=== PATIENT | female | born 1945 | race Caucasian/White ===

== ENCOUNTER 2017-12-27 12:48 | Emergency (ER) | payer MEDICARE, SELFPAY ==
[2017-12-27 13:00] VITALS: BP 159/83; PULSE 79; RESP 18; TEMP 37.6; O2SAT 99
--- NOTE | 2017-12-27 13:42 | ED_ITS ---
HPI - General Adult <ZAINA Capellan - Last Filed: 12/27/17 22:23> General Chief complaint: Recheck/Abnormal Lab/Rx Stated complaint: hoping to recieve pain meds for thigh pain Time Seen by Provider: 12/27/17 12:50 Source: patient Mode of arrival: ambulatory Limitations: no limitations History of Present Illness HPI narrative: 72-year-old female here for complaint of pain into her lumbar area radiating down into her buttocks and into her left thigh. She states that the pain started 1 week ago when she was in [place] walking on the beach and slipped in a sand dune. She reports that she was seen in the emergency room in [place] and had x-rays of the left hip and also an ultrasound of the left lower extremity for blood clot and was negative. She was prescribed cyclobenzaprine and tramadol for her symptoms. She reports that she has been using these and is almost out of tramadol and request some more tramadol she is scheduled to follow up with the primary care provider in the next few days for re-evaluation. She denies any loss of bladder or bowel control. She denies any direct trauma to the area. She is ambulatory into the emergency room. Onset (ago): day(s) Related Data Home Medications Medication Instructions Recorded Confirmed CALCIUM CARBONATE (CALCIUM 1,000 mg PO Q DAY #0 06/01/12 CARBONATE (CHEW)) LACTOBACILLUS ACIDOPHILUS 1 cap PO Q DAY #0 06/01/12 (#ACIDOPHILUS) LOPERAMIDE HCL (Loperamide) 2 mg PO HSP PRN #30 tab 03/02/13 Previous Rx's Medication Instructions Recorded nitrofurantoin monohyd/m-cryst 100 mg PO BID #14 cap 12/17/16 [Macrobid] prednisone 40 mg PO DAILY #8 tab 12/27/17 tramadol 50 mg PO Q6H PRN #6 tab 12/27/17 Allergies Allergy/AdvReac Type Severity Reaction Status Date / Time oxycodone [OXYCODONE] Allergy Unknown DIARRHEA & Unverified 09/10/17 12:04 VOMITING Review of Systems <ZAINA Capellan - Last Filed: 12/27/17 22:23> Constitutional Denies chills, Denies fever(s), Denies lethargy and Denies weakness Eyes Denies change in vision, Denies eye discharge, Denies irritation and Denies loss of vision ENT Ears, Nose, Mouth, and Throat: Denies change in voice, Denies neck pain and Denies sore throat Cardiovascular Denies chest pain, Denies irregular heart rhythm, Denies lightheadedness, Denies palpitations, Denies dyspnea, Denies dyspnea on exertion and Denies orthopnea Respiratory Denies cough, Denies dyspnea, Denies dyspnea on exertion and Denies wheezing Gastrointestinal Gastrointestinal: Denies abdominal pain, Denies change in bowel habits, Denies diarrhea, Denies nausea and Denies vomiting Genitourinary Denies hematuria, Denies flank pain, Denies urinary incontinence and Denies urinary urgency Musculoskeletal Denies neck pain Comments: Left lumbar pain that radiates into left buttocks and left posterior thigh Integumentary/Breasts Denies pruritus, Denies erythema, Denies rash and Denies wounds Neurologic Denies confusion, Denies loss of vision and Denies weakness Psychiatric Denies anxiety, Denies confusion, Denies depression, Denies homicidal ideation and Denies suicidal ideation Endocrine Denies palpitations Hematologic/Lymphatic Denies easy bruising Allergic/Immunologic Denies wheezing Exam <ZAINA Capellan - Last Filed: 12/27/17 22:23> Initial Vital Signs Initial Vital Signs: Vital Signs Temperature 99.7 F H 12/27/17 13:00 Pulse Rate 79 12/27/17 13:00 Respiratory Rate 18 12/27/17 13:00 Blood Pressure 159/83 H 12/27/17 13:00 Pulse Oximetry 99 12/27/17 13:00 Const General: cooperative and well developed Nutritional Appearance: well nourished Orientation: alert, awake, oriented x3 and not confused [facility] Mouth: oral mucosae normal and moist mucous membranes Eyes Conjunctivae: conjunctivae normal Sclera: sclerae normal Pupils: PERRL EOM: EOM intact bilaterally Resp Effort & Inspection: normal respiratory effort, able to speak in complete sentences, no respiratory distress and no use of accessory muscles Auscultation: clear to auscultation bilaterally, no rales, no rhonchi and no wheezes Cardio Rate: regular rate Rhythm: regular rhythm Heart Sounds: no click, no gallops, no murmurs and no rubs Pulses: normal peripheral pulses Back/Spine/Pelvis Other: Tenderness to the left paraspinals of the lumbar spine with tenderness radiating to the left buttocks and into the left posterior thigh distal sensation is intact. Full range of motion. Distal pulses are intact. Skin General: no rashes or lesions noted, No jaundice and No petechiae Neuro General: alert, oriented x3, gait normal and no focal motor deficits Speech: speech normal <Broderick Cota DO - Last Filed: 12/28/17 07:29> Initial Vital Signs Initial Vital Signs: Vital Signs Temperature 99.7 F H 12/27/17 13:00 Pulse Rate 79 12/27/17 13:00 Respiratory Rate 18 12/27/17 13:00 Blood Pressure 159/83 H 12/27/17 13:00 Pulse Oximetry 99 12/27/17 13:00 Medical Decision Making <ZAINA Capellan - Last Filed: 12/27/17 22:23> MDM Narrative Medical decision making narrative: Signs and symptoms presents as lumbar strain to the left paraspinals with sciatica to the left buttocks and thigh. Will have her continue using cyclobenzaprine to help with muscle spasm. Over-the- counter Tylenol as needed for discomfort. She is prescribed a hand full more of tramadol and instructed not to use in conjunction with the cyclobenzaprine. She is also given a short course of prednisone for anti-inflammatory effects. Follow up with primary care provider in the next few days as scheduled. Gentle range of motion to the painful areas to help keep muscles loose. For any worsening symptoms return to the emergency room. Discharge Plan Departure Patient Disposition: Home, Self-Care Clinical Impression: Lower back pain Discharge Date/Time: 12/27/17 13:57 Interventions: ED Discharge Assessment Last Done: 12/27/17 13:55 Instructions: DI for Back Pain With Sciatica Activity Restrictions/Additional Instructions: Signs and symptoms presents as lower back strain with sciatica. Use over-the- counter Tylenol as needed for any discomfort. Continue to use the cyclobenzaprine for muscle spasm as prescribed. Handful of tramadol is prescribed for pain and not covered by the Tylenol. Do not use the tramadol and conjunction with a cyclobenzaprine due to increased risk of drowsiness. Both medications can cause drowsiness do not drive while on these medications. Short course of prednisone is also prescribed for anti-inflammatory effects use as directed. Follow up with her primary care provider in the next few days as scheduled. For any worsening symptoms return to the emergency room. Gentle range of motion to painful areas to help keep muscles loose. Prescriptions: New prednisone 20 mg tablet 40 mg PO DAILY Qty: 8 RF: 0 tramadol 50 mg tablet 50 mg PO Q6H PRN (Reason: pain) Qty: 6 RF: 0 No Action CALCIUM CARBONATE (CALCIUM CARBONATE (CHEW)) 1,000 mg PO Q DAY Qty: 0 RF: 0 LACTOBACILLUS ACIDOPHILUS (#ACIDOPHILUS) 1 cap PO Q DAY Qty: 0 RF: 0 LOPERAMIDE HCL (Loperamide) 2 mg PO HSP PRNQty: 30 RF: 0 nitrofurantoin monohyd/m-cryst [Macrobid] 100 MG capsule 100 mg PO BID Qty: 14 RF: 0 Referrals: [facility] [Provider Group] Provider,Conversion [Non-Staff] - <Broderick Cota DO - Last Filed: 12/28/17 07:29> Cosign ED Attending Cossherryature Attestation: I was available for consultation during this patient's emergency department encounter
== END 2017-12-27 13:57 | disposition home or self-care (01) ==
PROVIDERS: Emergency Provider Nurse Practitioner Family
DX: M54.9 Dorsalgia, unspecified (principal)
CPT/HCPCS: 99282

== ENCOUNTER 2020-11-23 15:46 | Emergency (ER) | payer MEDICARE, SELFPAY ==
[2020-11-23 16:08] VITALS: BP 201/86; PULSE 69; RESP 14; TEMP 36.7; O2SAT 97; BMI 21.8
--- NOTE | 2020-11-23 16:49 | DI.US.S_ITS ---
PROCEDURE: US PERIPH VENOUS LOW EXTREM RT INDICATIONS: swelling and calf pain TECHNIQUE: Real-time imaging, as well as color and pulse Doppler interrogation, were performed of the lower extremity deep veins from the inguinal ligament to the popliteal fossa. COMPARISON: None. FINDINGS: The common femoral, femoral and popliteal veins are normally compressible, and free of intraluminal thrombus. Color and pulse Doppler demonstrate normal phasic intraluminal flow. There is normal augmentation response to distal compression maneuver. Incidental popliteal cyst measures 5.4 x 3.9 x 2.0 cm. IMPRESSION: No evidence of deep venous thrombosis, right lower extremity. Incidental popliteal cyst Dictated by: Reese Parry M.D. on 11/23/2020 at 16:15 Approved by: Reese Parry M.D. on 11/23/2020 at 16:16
--- NOTE | 2020-11-23 16:50 | ED.EXTPRO ---
HPI - Extremity Problem General Chief complaint: Extremity Problem,Nontraumatic Stated complaint: rt knee pain, hx blood clots Time Seen by Provider: 11/23/20 16:49 Source: patient Mode of arrival: Ambulatory Limitations: no limitations History of Present Illness HPI Narrative: 76-year-old woman with currently on prednisone presents with right calf pain. Three days ago she was out on a hike in the [place] with her granddaughter did some climbing through uneven ground had no issues or difficulty. The next day she noticed that her knee was a bit swollen her calf is a bit sore. Symptoms seem to stay consistent over that time frame and she talked to her provider at [facility] in [place] who suggested evaluation with ultrasound to rule out DVT. Her right calf is slightly more swollen, she does have a mild effusion in the right knee. She denies chest pain, fevers, orthopnea, exertional dyspnea or palpitations. Related Data Home Medications Medication Instructions Recorded Confirmed CALCIUM CARBONATE (CALCIUM 1,000 mg PO Q DAY #0 06/01/12 CARBONATE (CHEW)) LACTOBACILLUS ACIDOPHILUS 1 cap PO Q DAY #0 06/01/12 (#ACIDOPHILUS) LOPERAMIDE HCL (Loperamide) 2 mg PO HSP PRN #30 tab 03/02/13 Previous Rx's Medication Instructions Recorded nitrofurantoin monohyd/m-cryst 100 mg PO BID #14 cap 12/17/16 [Macrobid] prednisone 40 mg PO DAILY #8 tab 12/27/17 tramadol 50 mg PO Q6H PRN #6 tab 12/27/17 Allergies Allergy/AdvReac Type Severity Reaction Status Date / Time oxycodone [OXYCODONE] Allergy Unknown DIARRHEA & Verified 11/23/20 16:10 VOMITING Review of Systems Review of Systems Narrative: Remainder of complete review of systems is otherwise unremarkable except for that included in the HPI. Patient History Social History Smoking Status: Never smoker Smoking Status: Never smoker alcohol intake frequency: 0-2 drinks per day Substance Use Type: does not use Exam Narrative Exam Narrative: General: Alert appropriate in no acute distress Respiratory: Able to speak in full sentences, no obvious respiratory distress Skin: No obvious rashes, warm and dry Neurologic: Grossly intact no obvious asymmetries or abnormalities Psych: appropriate insight and affect, cooperative Extremity: Some minor tenderness along the lateral aspect of the distal gastroc muscle right side. Neurovascularly intact with full ankle and knee range of motion. She has a 5 cm nontender Mancera cyst in the popliteal fossa Initial Vital Signs Initial Vital Signs: Vital Signs Temperature 98.0 F 11/23/20 16:08 Pulse Rate 69 11/23/20 16:08 Respiratory Rate 14 11/23/20 16:08 Blood Pressure 201/86 H 11/23/20 16:08 Pulse Oximetry 97 11/23/20 16:08 Course Orders Ordered: ED Orders 11/23/20 16:49 US periph venous low extrem rt Stat Vital Signs Vital signs: Vital Signs - 8 hr 11/23/20 16:08 Temperature 98.0 F Pulse Rate 69 Respiratory Rate 14 Blood Pressure 201/86 H Pulse Oximetry 97 MDM - Extremity (Nontraumatic) Imaging Data US - DVT: Radiologist's Impression: FINDINGS: The common femoral, femoral and popliteal veins are normally compressible, and free of intraluminal thrombus. Color and pulse Doppler demonstrate normal phasic intraluminal flow. There is normal augmentation response to distal compression maneuver. Incidental popliteal cyst measures 5.4 x 3.9 x 2.0 cm. IMPRESSION: No evidence of deep venous thrombosis, right lower extremity. Incidental popliteal cyst Dictated by: Reese Parry M.D. on 11/23/2020 at 16:15 MDM Narrative Medical decision making narrative: 75-year-old woman with increasing right calf pain after an active trop through the [place] a couple of days ago. No evidence of DVT. She does have a popliteal fossa Mancera cyst that is nontender and an incidental finding. No evidence of infection, Achilles rupture or gastroc tear. Reassurance is given and she is safe for home discharge Discharge Plan Departure Patient Disposition: Home Clinical Impression: Muscle strain of right lower leg Qualifiers: Encounter type: initial encounter Qualified Code(s): S86.911A - Strain of unspecified muscle(s) and tendon(s) at lower leg level, right leg, initial encounter Mancera's cyst of knee Qualifiers: Laterality: right Qualified Code(s): M71.21 - Synovial cyst of popliteal space [Mancera], right knee Instructions: DI for Mancera Cyst, DI for Calf Muscle Strain Activity Restrictions/Additional Instructions: Thank you for coming in today You do not have a blood clot in your leg. We did find and incidental Mancera's cyst behind her knee. I do not think that this is the cause of your pain. Your pain is lower in your calf and I believe he simply pulled a calf muscle. Using compression socks can be quite helpful. Trying ice or heat to see which is most beneficial. Using 400 mg of ibuprofen (2 bame-thu-adhsutn pills) and 1 Tylenol every 6 hours can be very helpful in controlling pain. You can gradually increase your activity as your pain threshold allows If your finding your having increasing pain behind her knee, please schedule an appointment with the orthopedic surgeon for further evaluation and recommendations. Prescriptions: No Action CALCIUM CARBONATE (CALCIUM CARBONATE (CHEW)) 1,000 mg PO Q DAY Qty: 0 RF: 0 LACTOBACILLUS ACIDOPHILUS (#ACIDOPHILUS) 1 cap PO Q DAY Qty: 0 RF: 0 LOPERAMIDE HCL (Loperamide) 2 mg PO HSP PRNQty: 30 RF: 0 nitrofurantoin monohyd/m-cryst [Macrobid] 100 MG capsule 100 mg PO BID Qty: 14 RF: 0 prednisone 20 mg tablet 40 mg PO DAILY Qty: 8 RF: 0 tramadol 50 mg tablet 50 mg PO Q6H PRN (Reason: pain) Qty: 6 RF: 0
--- NOTE | 2020-11-23 18:36 | PC.NURSE ---
Reports history of PE. Denies chest pain or SOB. Reports walking friday no injury or trauma, woke with right knee pain, posterior and radiates down behind right knee. CMS intact.
[2020-11-23 19:11] VITALS: BP 168/76; PULSE 88; RESP 16; O2SAT 98
== END 2020-11-23 19:12 | disposition home or self-care (01) ==
PROVIDERS: Emergency Provider Emergency Medicine
DX: S86.911A Strain of unspecified muscle(s) and tendon(s) at lower leg level, right leg, initial encounter (principal); M71.21 Synovial cyst of popliteal space [Baker], right knee
CPT/HCPCS: 93971; 99281; 99283

== ENCOUNTER 2021-02-16 15:40 | Emergency (ER) | payer MEDICARE, SELFPAY ==
[2021-02-16] VITALS (7 sets, daily range): BP systolic 164–204; BP diastolic 79–94; PULSE 58–63; RESP 16–39; TEMP 36.6; O2SAT 98–99; BMI 21.8
--- NOTE | 2021-02-16 15:55 | DI.RAD.S_ITS ---
PROCEDURE: XR CHEST 1V INDICATIONS: chest pain TECHNIQUE: One view of the chest was acquired. COMPARISON: None. FINDINGS: Surgical changes and devices: None. Lungs and pleura: Left basilar atelectasis. Hyperinflation consistent with COPD. No pleural effusions or pneumothorax. Mediastinum: Mediastinal contours appear normal. Heart size is normal. Bones and chest wall: No suspicious bony lesions. Overlying soft tissues appear unremarkable. IMPRESSION: No acute cardiopulmonary disease. COPD and left basilar atelectasis. Dictated by: James Ulrich M.D. on 02/16/2021 at 16:22 Approved by: James Ulrich M.D. on 02/16/2021 at 16:22
--- NOTE | 2021-02-16 16:30 | ED_ITS ---
HPI - Chest Pain General Chief Complaint: Chest Pain Stated Complaint: chest pain Time Seen by Provider: 02/16/21 16:13 Source: patient Mode of arrival: Ambulatory Limitations: no limitations History of Present Illness HPI narrative: 76-year-old male comes emergency department with complaint of 2 weeks of substernal chest discomfort. Patient states it seems almost like a point discomfort on the left side of her chest. 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 Was found to be negative. She has never start antibiotics but was having routine CT scans and PFTs with her district manager primary care sales. She has not seen them in the past year. Dr. Олег Peters at [facility] is her district manager primary care sales. She does note she has had a cough on and off for the past year. She denies fevers or chills. No shortness of breath. No lightheadedness or passing out. No syncope. No nausea or vomiting. No abdominal pain. No diarrhea constipation. No rash or skin changes. Patient states that she was started on atorvastatin and increased from 10-20 mg for her calcium level. She reiterates it was her calcium and not her cholesterol and states she was asked by another physician if this was corrected. She takes temazepam and Imodium daily. She has remote history of pulmonary embolism after a 7 hour hysterectomy. She had genetic testing which was negative and was ultimately believed to be provoked by her surgery. She has not had any additional surgeries besides her lung resection and hysterectomy. She did not do well with oxycodone. No tobacco, 1 alcoholic drink nightly. No illicit. She lives on [address]. Related Data Home Medications Medication Instructions Recorded Confirmed CALCIUM CARBONATE (CALCIUM 1,000 mg PO Q DAY #0 06/01/12 CARBONATE (CHEW)) LACTOBACILLUS ACIDOPHILUS 1 cap PO Q DAY #0 06/01/12 (#ACIDOPHILUS) LOPERAMIDE HCL (Loperamide) 2 mg PO HSP PRN #30 tab 03/02/13 Previous Rx's Medication Instructions Recorded nitrofurantoin 100 mg PO BID #14 cap 12/17/16 monohydrate/macrocrystals 100 mg capsule (Macrobid) prednisone 20 mg tablet 40 mg PO DAILY #8 tab 12/27/17 tramadol 50 mg tablet 50 mg PO Q6H PRN #6 tab 12/27/17 Allergies Allergy/AdvReac Type Severity Reaction Status Date / Time oxycodone [OXYCODONE] Allergy Unknown DIARRHEA & Verified 11/23/20 16:10 VOMITING Review of Systems Review of Systems ROS Unobtainable: All systems reviewed & are unremarkable except as noted in HPI and below Patient History Social History Smoking Status: Never smoker Smoking Status: Never smoker alcohol intake frequency: 0-2 drinks per day Substance Use Type: does not use Exam Narrative Exam Narrative: GENERAL: Alert and oriented x three, thin female in mild distress. HEENT: Head normocephalic, atraumatic, EOMI, pupils reactive, face symmetric, mo ist mucous membranes NECK: Supple, full range of motion CARDIOVASCULAR: Regular rate and rhythm without murmurs, rubs or gallops. Patient has reproducible muscle pain between the 5th and 6th ribs of the left anterior chest. No rash, erythema or skin changes. No vesicles are noted. RESPIRATORY: Breath sounds equal bilaterally, no wheezes rales or rhonchi. ABDOMEN: Soft, nontender. Normoactive bowel sounds all 4 quadrants. No guarding or rebound, rigidity, no mass : No CVA tenderness EXTREMITIES: Normal range of motion, no clubbing or edema. Neurovascularly intact NEUROLOGICAL: Cranial nerves II through XII grossly intact. Moving all extremities SKIN: Warm, dry, no petechiae, no rashes or lesions. Initial Vital Signs Initial Vital Signs: Vital Signs Temperature 97.9 F 02/16/21 15:48 Pulse Rate 63 02/16/21 15:48 Respiratory Rate 16 02/16/21 15:48 Blood Pressure 204/94 H 02/16/21 15:48 Pulse Oximetry 99 02/16/21 15:48 Course Orders Ordered: ED Orders 02/16/21 15:55 XR chest 1V Stat EKG-12 Lead Stat 02/16/21 16:36 Complete Blood Count AUTO DIFF Stat Comprehensive Metabolic Panel Stat D Dimer Stat Lipase Stat Magnesium Stat NT-proBNP (BNP-Adult 18+) Stat Troponin & CK Cardiac Panel Stat 02/16/21 17:01 COVID19 -Nasal swab/Pre-Proc Stat Vital Signs Vital signs: Vital Signs - 8 hr 02/16/21 15:48 02/16/21 16:30 02/16/21 17:00 Temperature 97.9 F Pulse Rate 63 61 60 Respiratory Rate 16 22 Blood Pressure 204/94 H Pulse Oximetry 99 99 98 02/16/21 17:30 02/16/21 17:42 02/16/21 17:43 Temperature Pulse Rate 62 Respiratory Rate 39 H Blood Pressure 194/84 H 194/84 H Pulse Oximetry 98 99 02/16/21 18:07 Temperature Pulse Rate 58 L Respiratory Rate Blood Pressure 164/79 H Pulse Oximetry 98 MDM - Chest Pain Lab Data Result diagrams: 02/16/21 16:36 02/16/21 16:36 Labs: Lab Results 02/16/21 02/16/21 02/16/21 Range/Units 16:36 16:36 16:36 WBC 6.6 (4.5-11.0) X10^3/uL RBC 4.15 (4.0-5.2) X10^6/uL Hgb 13.6 (12.0-16.0) g/dL Hct 40.6 (36-46) % MCV 97.8 (80-100) fL MCH 32.8 (26-34) PG MCHC 33.5 (30-36) % RDW 13.2 (11.6-14.8) % Plt Count 217 (150-400) X10^3/uL Neut % (Auto) 64.5 (50-75) % Lymph % (Auto) 27.4 (25-40) % Rich % (Auto) 5.0 (3-14) % Eos % (Auto) 2.1 (2-4) % Baso % (Auto) 1.0 (0-2) % Neut # (Auto) 4300 (3750-6243) /uL Lymph # (Auto) 1800 (2076-7609) /uL Rich # (Auto) 300 (0-900) /uL Eos # (Auto) 100 (0-450) /uL Baso # (Auto) 100 (0-100) /uL D-Dimer < 200 (<230) ng/mL Sodium 142 (137-145) mmol/L Potassium 4.0 (3.4-5.1) mmol/L Chloride 107 (98-107) mmol/L Carbon Dioxide 32 (22-32) mmol/L BUN 19 H (7-17) mg/dL Creatinine 0.71 (0.52-1.04) mg/dL Estimated GFR > 60.0 (>60) mL/min BUN/Creatinine Ratio 26.8 H (6-22) Glucose 75 L (80-110) mg/dL Calcium 9.9 (8.4-10.2) mg/dL Magnesium 2.4 H (1.6-2.3) mg/dL Total Bilirubin 0.5 (0.2-1.3) mg/dL AST 35 (14-36) IU/L ALT 22 (<35) IU/L Alkaline Phosphatase 65 (38-126) U/L Total Creatine Kinase 45 (30-135) U/L CK-MB (CK-2) TNP CK-MB (CK-2) Rel Index TNP Troponin I < 0.012 (0.01-0.034) ng/mL NT-Pro-B Natriuret Pep (<450) pg/mL Total Protein 7.0 (6.3-8.2) g/dL Albumin 4.3 (3.5-5.0) g/dL Globulin 2.7 (1.7-4.1) g/dL Albumin/Globulin Ratio 1.6 (1.0-2.8) Lipase 43 (23-300) U/L SARS-CoV-2 (PCR) (Negative) 02/16/21 02/16/21 Range/Units 16:36 17:01 WBC (4.5-11.0) X10^3/uL RBC (4.0-5.2) X10^6/uL Hgb (12.0-16.0) g/dL Hct (36-46) % MCV (80-100) fL MCH (26-34) PG MCHC (30-36) % RDW (11.6-14.8) % Plt Count (150-400) X10^3/uL Neut % (Auto) (50-75) % Lymph % (Auto) (25-40) % Rich % (Auto) (3-14) % Eos % (Auto) (2-4) % Baso % (Auto) (0-2) % Neut # (Auto) (0279-6641) /uL Lymph # (Auto) (6122-2761) /uL Rich # (Auto) (0-900) /uL Eos # (Auto) (0-450) /uL Baso # (Auto) (0-100) /uL D-Dimer (<230) ng/mL Sodium (137-145) mmol/L Potassium (3.4-5.1) mmol/L Chloride (98-107) mmol/L Carbon Dioxide (22-32) mmol/L BUN (7-17) mg/dL Creatinine (0.52-1.04) mg/dL Estimated GFR (>60) mL/min BUN/Creatinine Ratio (6-22) Glucose (80-110) mg/dL Calcium (8.4-10.2) mg/dL Magnesium (1.6-2.3) mg/dL Total Bilirubin (0.2-1.3) mg/dL AST (14-36) IU/L ALT (<35) IU/L Alkaline Phosphatase (38-126) U/L Total Creatine Kinase (30-135) U/L CK-MB (CK-2) CK-MB (CK-2) Rel Index Troponin I (0.01-0.034) ng/mL NT-Pro-B Natriuret Pep 95 (<450) pg/mL Total Protein (6.3-8.2) g/dL Albumin (3.5-5.0) g/dL Globulin (1.7-4.1) g/dL Albumin/Globulin Ratio (1.0-2.8) Lipase (23-300) U/L SARS-CoV-2 (PCR) Negative (Negative) Imaging Data Chest x-ray: Radiologist's Impression: [address] [address] XRay Report Signed Patient: Sunitha Gottlieb MR#: [id number] : 1945 Acct:[id number] Age/Sex: 76 / F Date of Service: 02/16/21 Loc: ED Accession Number: [id number] ?? Procedure: XR chest 1V Ordering Provider: Ileana Forrest D.O. PROCEDURE:? XR CHEST 1V ? INDICATIONS:? chest pain ? TECHNIQUE:? One view of the chest was acquired.? ? COMPARISON:? None. ? FINDINGS:? ? Surgical changes and devices:? None.? ? Lungs and pleura:? Left basilar atelectasis.? Hyperinflation consistent with COPD.? No pleural effusions or pneumothorax.? ? Mediastinum:? Mediastinal contours appear normal.? Heart size is normal.? ? Bones and chest wall:? No suspicious bony lesions.? Overlying soft tissues appear unremarkable.? ? IMPRESSION:? No acute cardiopulmonary disease.? COPD and left basilar atelectasis. ? ? Dictated by: James Ulrich M.D. on 02/16/2021 at 16:22 ? ? Approved by: James Ulrich M.D. on 02/16/2021 at 16:22?? ECG Data Attestation: I personally reviewed and interpreted this ECG as follows: Prior ECG tracings: not available for review Interpretation: Sinus rhythm rate of 73 CT 142 QRS of [address] No acute [address] changes noted. MDM Narrative Medical decision making narrative: This is a 76-year-old female comes in with atypical chest pain that is reproducible point discomfort on the left side of her chest that is been present for 2 weeks. Patient has not had significant changes. She does have a history for mycobacterium avium complex but has not required antibiotics up to this point. She has had a cough for the past year that is intermittent. She has follow-up this week with her physician and is expecting to follow-up with her district manager primary care sales. She has not had any changes other than starting atorvastatin recently which he carries the is 4 calcium after we discussed this medication is typically for cholesterol. She is hypertensive. She has not had much change in her blood pressure in the department. Her EKG, troponin and D-dimer are negative without other major lab abnormalities besides a slightly elevated magnesium. Patient does have a history of provoked pulmonary embolism after a 7 hour hysterectomy. My suspicion for PE is much lower on the differential although we did discuss CT angiography and patient defers at this time. She is to continue to monitor her blood pressure at home. She is to return for new or worsening symptoms and otherwise follow up with her primary care physician on Friday or Friday at her appointment. Discharge Plan Departure Patient Disposition: Home Clinical Impression: Atypical chest pain Instructions: DI for Atypical Chest Pain Activity Restrictions/Additional Instructions: Follow-up with your physician at your appointment on Friday. Recommend you continue current medications as prescribed. May try Tylenol up to a 1000 mg every 8 hours for pain and see if this is helpful. Your blood pressure is quite elevated here in the department. Continue to mo nitor it. If your blood pressure is persistently above 160 over the we can contact your primary care for recommendations. If it is persistently above 200 systolic you should probably be re-evaluated if you cannot reach your primary care physician. Return for new or worsening chest pain, shortness of breath, lightheadedness or passing out, persistent vomiting, new or worsening swelling or other new or concerning symptoms. Prescriptions: No Action CALCIUM CARBONATE (CALCIUM CARBONATE (CHEW)) 1,000 mg PO Q DAY Qty: 0 RF: 0 LACTOBACILLUS ACIDOPHILUS (#ACIDOPHILUS) 1 cap PO Q DAY Qty: 0 RF: 0 LOPERAMIDE HCL (Loperamide) 2 mg PO HSP PRNQty: 30 RF: 0 nitrofurantoin monohyd/m-cryst [Macrobid] 100 MG capsule 100 mg PO BID Qty: 14 RF: 0 prednisone 20 mg tablet 40 mg PO DAILY Qty: 8 RF: 0 tramadol 50 mg tablet 50 mg PO Q6H PRN (Reason: pain) Qty: 6 RF: 0
[2021-02-16 16:44] LABS: Add Manual Diff / Slide Review NO; Basophils Absolute Auto 100 /uL (0-100); Eosinophils Absolute Auto 100 /uL (0-450); Eosinophils Percent Auto 2.1 % (2-4); Hematocrit 40.6 % (36-46); Hemoglobin 13.6 g/dL (12.0-16.0); Lymphocytes Absolute Auto 1800 /uL (1100-4500); Lymphocytes Percent Auto 27.4 % (25-40); Mean Corpuscular HGB Conc 33.5 % (30-36); Mean Corpuscular Hemoglobin 32.8 PG (26-34); Mean Corpuscular Volume 97.8 fL (80-100); Monocytes Absolute Auto 300 /uL (0-900); Neutrophils Absolute Auto 4300 /uL (1500-7000); Neutrophils Percent Auto 64.5 % (50-75); Platelet Count 217 X10^3/uL (150-400); Red Blood Cell Count 4.15 X10^6/uL (4.0-5.2); Red Cell Distribution Width 13.2 % (11.6-14.8); White Blood Cell Count 6.6 X10^3/uL (4.5-11.0)
[2021-02-16 17:02] LABS: D Dimer < 200 ng/mL (<230)
[2021-02-16 17:10] LABS: Alanine Aminotransferase 22 IU/L (<35); Albumin 4.3 g/dL (3.5-5.0); Albumin Globulin Ratio 1.6 (1.0-2.8); Alkaline Phosphatase 65 U/L (38-126); Aspartate Aminotransferase 35 IU/L (14-36); BUN Creatinine Ratio 26.8 (6-22); Bilirubin Total 0.5 mg/dL (0.2-1.3); Blood Urea Nitrogen 19 mg/dL (7-17); Calcium 9.9 mg/dL (8.4-10.2); Carbon Dioxide 32 mmol/L (22-32); Chloride 107 mmol/L (98-107); Creatine Kinase 45 U/L (30-135); Estimated Glomerular Filt Rate > 60.0 mL/min (>60); Globulin 2.7 g/dL (1.7-4.1); Glucose 75 mg/dL (80-110); HEMOLYSIS < 15 (0-50); Lipase 43 U/L (23-300); Magnesium 2.4 mg/dL (1.6-2.3); Sodium 142 mmol/L (137-145)
[2021-02-16 17:19] LABS: NT-proBNP (BNP-Adult 18+) 95 pg/mL (<450)
[2021-02-16 17:20] LABS: COVID19 -Nasal RAPID Negative (Negative)
[2021-02-16 17:21] LABS: Troponin I < 0.012 ng/mL (0.01-0.034)
== END 2021-02-16 18:08 | disposition home or self-care (01) ==
PROVIDERS: Emergency Provider Emergency Medicine
DX: R07.89 Other chest pain (principal); R05 Cough; E83.42 Hypomagnesemia; Z20.822 Contact with and (suspected) exposure to COVID-19
CPT/HCPCS: 36415; 71045; 80053; 82550; 83690; 83735; 83880; 84484; 85025; 85379; 87635; 93005; 93010; 99283; 99284; C9803

== ENCOUNTER 2025-04-22 13:31 | Emergency (ER) | payer MEDICARE, SELFPAY ==
[2025-04-22 13:49] VITALS: BP 171/74; PULSE 72; RESP 17; TEMP 36.8; O2SAT 99; BMI 21.9
--- NOTE | 2025-04-22 13:59 | ED_ITS ---
HPI - Animal Bite <Hannah Sanders PA-C - Last Filed: 04/22/25 18:06> General Chief Complaint: Animal Bite Stated Complaint: Scratched by her cat, right hand is numb Time Seen by Provider: 04/22/25 13:51 Source: patient Mode of arrival: Ambulatory History of Present Illness HPI narrative: Ms. Gottileb is a pleasant 80-year-old female with no reported past medical history who presents to the emergency department with her for concern of right hand pain, bruising, numbness after being scratched and bit by her cat 2 days ago. Patient states that her cat is up-to-date on all of its vaccines and she was playing with him Friday night when he bit or scratched her dorsal right forearm/wrist and also her hand. The following morning she developed bruising on the entire dorsal aspect of the right hand and she now has pain at the base of the right thumb, overlying the 2nd metacarpal and has a small scab on the wrist. She notices that the tip of her thumb is now starting to become numb. She is not on any blood thinners and she denies allergy to antibiotics. She is unsure of her last Tdap and would like it to be updated. She denies any fevers chills flu-like symptoms or other concerns. Related Data Home Medications ?Medication ?Instructions ?Recorded ?Confirmed CALCIUM CARBONATE (CALCIUM 1,000 mg PO Q DAY ##0 06/01 CARBONATE (CHEW)) LACTOBACILLUS ACIDOPHILUS 1 cap PO Q DAY ##0 06/01/12 (#ACIDOPHILUS) LOPERAMIDE HCL (Loperamide) 2 mg PO HSP PRN #30 tabs 1 Previous Rx's ?Medication ?Instructions ?Recorded nitrofurantoin 100 mg PO BID #14 caps 12/17 monohydrate/macrocrystals 100 mg capsule (Macrobid) prednisone 20 mg tablet 40 mg (2 x 20 mg) PO DAILY # 8 tabs 12/27/17 tramadol 50 mg tablet 50 mg PO Q6H PRN pain #6 tab s 12/27/17 amoxicillin 875 mg-potassium 1 tab PO Q12H 7 days #14 tabs 04/22/25 clavulanate 125 mg tablet Allergies Allergy/AdvReac Type Severity Reaction Status Date / Time oxycodone (OXYCODONE) Allergy Unknown DIARRHEA & Verified 04/22/25 13:50 VOMITING Review of Systems <Hannah Sanders PA-C - Last Filed: 04/22/25 18:06> Review of Systems ROS Unobtainable: All systems reviewed & are unremarkable except as noted in HPI and below Patient History <Hannah Sanders PA-C - Last Filed: 04/22/25 18:06> Social History Smoking Status: Smoker, status unknown Smoking Status: Smoker, status unknown alcohol intake frequency: 0-2 drinks per day Exam <Hannah Sanders PA-C - Last Filed: 04/22/25 18:06> Narrative Exam Narrative: GENERAL: 80 year old patient appears stated age. Well-developed patient, in no acute distress. HEAD: Atraumatic. Normocephalic. EYES: No scleral icterus. No injection or drainage. NECK: Trachea midline. Cervical ROM intact. CARDIOVASCULAR: Regular rate RESPIRATORY: ?Nonlabored respirations. ?Speaking in clear, full sentences. NEURO: AOx3. ?Clear speech. ?Moves all 4 extremities appropriately. SKIN: 1mm scab dorsal aspect of right wrist. There is ecchymoses of the entire dorsal aspect of the right hand with small area of tenderness over the 2nd MCP and also at the base of the 1st MCP. Patient reports decreased sensation to palpation of the tip of her thumb, there is brisk cap refill on all fingertips and she is able to fully extend and flex the right hand, 2+ radial pulses bilaterally. Initial Vital Signs Initial Vital Signs: Vital Signs Temperature 98.2 F 04/22/25 13:49 Pulse Rate 72 04/22/25 13:49 Respiratory Rate 17 04/22/25 13:49 Blood Pressure 171/74 H 04/22/25 13:49 Pulse Oximetry 99 04/22/25 13:49 Oxygen Delivery Method Room Air 04/22/25 13:49 <Carlos Looney MD - Last Filed: 04/23/25 07:10> Initial Vital Signs Initial Vital Signs: Vital Signs Temperature 98.2 F 04/22/25 13:49 Pulse Rate 72 04/22/25 13:49 Respiratory Rate 17 04/22/25 13:49 Blood Pressure 171/74 H 04/22/25 13:49 Pulse Oximetry 99 04/22/25 13:49 Oxygen Delivery Method Room Air 04/22/25 13:49 Course <Hannah Sanders PA-C - Last Filed: 04/22/25 18:06> Orders Ordered: Discontinued Medications Amoxicillin/Clavulanate Potassium (Amoxicillin/Clav 875/125 Mg) 1 tab PO NOW ONE Stop: 04/22/25 14:00 Last Admin: 04/22/25 14:13 Dose: 1 tab Documented By: CTS Diphtheria/Tetanus/Acell Pertussis (Tet,Diph,Pertuss(Acell),Vac/Pf 0.5 Ml Syringe) 0.5 ml IM .ONCE ONE Stop: 04/22/25 14:00 Last Admin: 04/22/25 14:14 Dose: 0.5 ml Documented By: CTS Vital Signs Vital signs: Vital Signs - 8 hr 04/22/25 13:49 Temperature 98.2 F Pulse Rate 72 Respiratory Rate 17 Blood Pressure 171/74 H Pulse Oximetry 99 Oxygen Delivery Method Room Air <Carlos Looney MD - Last Filed: 04/23/25 07:10> Orders Ordered: Discontinued Medications Amoxicillin/Clavulanate Potassium (Amoxicillin/Clav 875/125 Mg) 1 tab PO NOW ONE Stop: 04/22/25 14:00 Last Admin: 04/22/25 14:13 Dose: 1 tab Documented By: CTS Diphtheria/Tetanus/Acell Pertussis (Tet,Diph,Pertuss(Acell),Vac/Pf 0.5 Ml Syringe) 0.5 ml IM .ONCE ONE Stop: 04/22/25 14:00 Last Admin: 04/22/25 14:14 Dose: 0.5 ml Documented By: CTS Vital Signs Vital signs: Vital Signs - 8 hr 04/22/25 13:49 Temperature 98.2 F Pulse Rate 72 Respiratory Rate 17 Blood Pressure 171/74 H Pulse Oximetry 99 Oxygen Delivery Method Room Air MDM - Animal Bite <Hannah Sanders PA-C - Last Filed: 04/22/25 18:06> Medical Records Attestation: I reviewed the patient's medical records. Imaging Data XR Right Hand: Radiologist's Impression: PROCEDURE: XR HAND RT MIN 3V INDICATIONS: cat bite dorsal r hand; base of thumb and 2nd metacarpal dawit TECHNIQUE: 3 views of the hand(s) acquired. COMPARISON: None. FINDINGS: Bones: No fractures or dislocations. Osteoarthritic changes are noted throughout right hand and wrist joints. No gross bony erosion or cortical destruction is seen. Carpal bones are normally aligned. No suspicious bony lesions. Soft tissues: No suspicious soft tissue calcifications. IMPRESSION: No right hand fracture or dislocation. No radiopaque foreign bodies. Right hand and wrist joint osteoarthritis. No radiographic evidence of osteomyelitis. Dictated by: Nikko Rogel M.D. on 04/22/2025 at 14:45 Approved by: Nikko Rogel M.D. on 04/22/2025 at 14:46 [facility] Narrative Medical decision making narrative: 80-year-old female with no reported past medical history who presents to the emergency department with her for concern of right hand pain, bruising, numbness after being scratched and bit by her cat 2 days ago. Differential diagnosis includes but is not limited to cat bite, hematoma, fracture, foreign body, cellulitis, etc. On exam the patient is in no acute distress, nontoxic appearing, vital signs appropriate. She has small scab puncture wound on her dorsal right wrist and ecchymosis of the entire aspect of the dorsal hand with tenderness over the 1st and 2nd metacarpals after being bit and scratched by her cat 2 days ago. She is neurovascularly intact except for decreased sensation to light touch on the tip of the thumb. She is able to flex and extend the hand, 2+ radial pulse, brisk cap refill in all the fingertips. We will obtain x-ray right hand, patient does have tenderness near the snuffbox of the base of the right thumb. We will treat with Augmentin and update Tdap. X-ray reveals no right-hand fracture or dislocation, no radiopaque foreign body, there is osteoarthritis. Patient was prescribed Augmentin b.i.d. x7 days, Tdap updated, she was placed into a right thumb spica splint. Discussed rice therapy with the patient and proper wound care. At this time I recommended that she continue to wear the splint and to follow up with Orthopedics or her PCP for repeat x-ray in 1 week if she has persistent pain. Discussed ER return precautions. Patient verbalized understanding of all information is agreeable with the plan. She is stable for discharge home at this time. Discharge Plan Departure Patient Disposition: Home Clinical Impression: Hematoma of right hand Cat bite Qualifiers: Encounter type: initial encounter Qualified Code(s): W55.01XA - Bitten by cat, initial encounter Instructions: DI for Cat Bite Activity Restrictions/Additional Instructions: Dear Andres Chery, Thank you for coming to the emergency department. Today you were evaluated for symptoms that developed after a cat bite/scratch to her right hand. Your x-ray does not reveal any fractures or dislocations however given the location of your pain at the base of the right thumb, would like you to wear the splint for the next few weeks as long as she will have pain. If your pain is not improved you should have a repeat x-ray in the next 7-10 days. Please complete the full course of antibiotics. Please use RICE therapy for your pain in addition to ibuprofen/acetaminophen. Rest the painful area. Ice the area of pain/swelling for at least 15 minutes, 4x a day. Compress the area of swelling using a brace, wrap, or splint if applied. Elevate the painful or swollen extremity by supporting it above the level of the heart with pillows when sitting or laying. Please follow up with your primary care doctor and/or orthopedics for further management of your right hand pain please return to the emergency department if you develop redness spreading up the arm, fevers or any other concerns. Please follow up with your primary care doctor within the next 2-3 days for ER follow-up. (If you do not have a PCP you can call [phone]. ?to schedule an appointment with an [facility] Primary Care Provider) IF YOU DEVELOP ANY NEW OR WORSENING SYMPTOMS, RETURN TO THE ER! Please read the attached instructions, they highlight more specific treatments and interventions for you at home. Thank you for letting me participate in your care, Hannah Sanders PA-C Prescriptions: New amoxicillin-pot clavulanate 875-125 mg tablet 1 tab PO Q12H 7 Days Qty: 14 0RF No Action CALCIUM CARBONATE (CALCIUM CARBONATE (CHEW)) 1,000 mg PO Q DAY Qty: 0 LACTOBACILLUS ACIDOPHILUS (#ACIDOPHILUS) 1 cap PO Q DAY Qty: 0 LOPERAMIDE HCL (Loperamide) 2 mg PO HSP PRNQty: 30 nitrofurantoin monohyd/m-cryst [Macrobid] 100 MG capsule 100 mg PO BID Qty: 14 0RF prednisone 20 mg tablet 40 mg PO DAILY Qty: 8 0RF tramadol 50 mg tablet 50 mg PO Q6H PRN (Reason: pain) Qty: 6 0RF Referrals: Joycelyn Salazar MD [Primary Care Provider, Internal Medicine] Reese Yung MD [Physician, Orthopedic Surgery] Referral Note: Right hand cat bite Stand Alone Forms: Patient Portal/API ED Sign-out <Carlos Looney MD - Last Filed: 04/23/25 07:10> [facility] Att[facility]: I was available for consultation during this patient's emergency department visit. This chart is signed by myself for administrative purposes only. I did not have direct contact with this patient during this visit. They were seen independently by the APC.
[2025-04-22] MEDS: AMOXICILLIN/CLAV 875/125 MG 1 TAB PO (14:13)
[2025-04-22] MEDS: TET,DIPH,PERTUSS(ACELL),VAC/PF 0.5 ML SYRINGE IM (14:14)
== END 2025-04-22 15:49 | disposition home or self-care (01) ==
PROVIDERS: Emergency Provider Physician Assistant; PCP Internal Medicine
DX: S60.221A Contusion of right hand, initial encounter (principal); W55.01XA Bitten by cat, initial encounter; R20.0 Anesthesia of skin; Z23 Encounter for immunization
CPT/HCPCS: 29130; 73130; 90471; 99283; 99284; 90715